=== PATIENT | female | born 1965 | race Hispanic/Latino ===

== ENCOUNTER → 2019-10-15 | Outpatient (CLI) | payer BC ==
[~2019-10-15] MED LIST: NAPROSYN500 MG PO; TOPROL XL25 MG PO; Z.0.LASIX20 MG PO; Z.0.TESSALON PERLE10 PO; [UNRECOGNIZED DRUG - OTHER] PO; [UNRECOGNIZED DRUG - OTHER] PO
== END ==
LOC: RAD 14:33
DX: M79.605 Pain in left leg (principal); M79.89 Other specified soft tissue disorders
CPT/HCPCS: 93971

== ENCOUNTER → 2019-10-23 | Outpatient (CLI) | payer BC ==
--- NOTE | 2019-10-23 15:53 | Diagnostic Imaging Report ---
X-ray knee multiple views left Comparison: None History: Pain and swelling Findings: No acute fracture or subluxation. Tricompartmental osteoarthritic changes. Knee joint effusion. Soft tissue swelling in the prepatellar area. Impression: As above. Signed by: Reén Christiansen MD on 10/23/2019 3:50 PM
== END ==
LOC: RAD 14:16
DX: M25.562 Pain in left knee (principal); M25.462 Effusion, left knee